=== PATIENT | female | born 1985 | race Caucasian/White ===

== ENCOUNTER 2016-03-26 12:08 | Emergency (ER) | payer MEDICAID ==
[2016-03-26] MEDS ORDERED: KETOROLAC 30 MG/ML VIAL ONE (17:04)
[2016-03-26] MEDS ORDERED: SODIUM CHLORIDE 0.9% 1,000 ML ONE (17:05)
== END 2016-03-26 19:35 | disposition home or self-care (01) ==
LOC: ER 12:08
CPT/HCPCS: 36415; 76830; 80053; 81003; 84703; 85025; 87088; 87491; 87591; 87800; 96361; 96374